=== PATIENT | male | born 1980 | race Caucasian/White ===

== ENCOUNTER 2024-03-15 23:23 | Inpatient (IN) | payer OTHER ==
[2024-03-15] MEDS ORDERED: NALOXONE 0.4 MG/ML 1 ML VIAL IV PRN (23:41)
--- NOTE | 2024-03-15 23:41 | ED ---
General Adult HPI - General Chief complaint: Recheck/Abnormal Lab/Rx Stated complaint: transfer Time Seen by Provider: 03/15/24 23:25 Source: patient, EMS Mode of arrival: EMS - History of Present Illness Initial comments: Dictation was produced using [employer] dictation software. please excuse any grammatical, word or spelling errors. Chief Complaint: 43-year-old male presents to the emergency as transfer from [facility] for ACS History of Present Illness: Patient is a 43-year-old male presents emergency department as a transfer from [facility]. He was found to have a troponin level of 15.13. States that he initially presented to [facility] for chest pain states that it was a sharp pain to her substernal chest associated with diaphoresis at [facility] his given aspirin heparin states that his symptoms resolved. At the bedside he is currently pain-free. He has history of diabetes. States he does have family history. Denies any other comorbidities or risk factors. The ROS documented in this emergency department record has been reviewed and confirmed by me. Those systems with pertinent positive or negative responses have been documented in the HPI. All other systems are other negative and/or noncontributory. - Related Data Allergies Allergy/AdvReac Type Severity Reaction Status Date / Time No Known Allergies Allergy Verified 03/15/24 23:33 Review of Systems ROS Statement: Those systems with pertinent positive or pertinent negative responses have been documented in the HPI. ROS Other: All systems not noted in ROS Statement are negative. Past Medical History Past Medical History: Diabetes Mellitus, Hyperlipidemia Smoking Status: Current every day smoker Past Alcohol Use History: None Reported Past Drug Use History: Marijuana General Exam - General Exam Comments Initial Comments: PHYSICAL EXAM: General Impression: Alert and oriented x3, not in acute distress HEENT: Normocephalic atraumatic, extra-ocular movements intact, pupils equal and reactive to light bilaterally, mucous membranes moist. Cardiovascular: Heart regular rate and rhythm Chest: Able to complete full sentences, no retractions, no tachypnea Abdomen: abdomen soft, non-tender, non-distended, no organomegaly Musculoskeletal: Pulses present and equal in all extremities, no peripheral edema Motor: no focal deficits noted Neurological: CN II-XII grossly intact, no focal motor or sensory deficits noted Skin: Intact with no visualized rashes Psych: Normal affect and mood Course Vital Signs 03/15/24 23:24 Temperature 98.0 F Pulse Rate 79 Respiratory 18 Rate Blood Pressure 132/71 O2 Sat by Pulse 96 Oximetry - Reevaluation(s) Reevaluation #1: 03/15/24 23:35 EKG was performed at 11:29 PM. Code STEMI paged at [address] Tran at 1136 EKG Findings - EKG Comments: EKG Findings:: My EKG interpretation: Ventricular rate 73, sinus rhythm,. 131, QRS 109, QTc 410. No AK prolongation, no QTC prolongation. Inferior ST elevations with reciprocal changes in the high lateral leads. EKG consistent with inferior STEMI Medical Decision Making - Medical Decision Making Was pt. sent in by a medical professional or institution (, PA, [employer] SURFACE HEATER OPERATOR, urgent care, hospital, or jail...) When possible be specific @ -Outside emergency department Did you speak to anyone other than the patient for history (EMS, parent, family, police, friend...)? What history was obtained from this source @ -Spoke with ER transferring physician states that patient was being transferred for NSTEMI with elevated troponin. Did you review nursing and triage notes (agree or disagree)? Why? @ -I reviewed and agree with nursing and triage notes Were old charts reviewed (outside hosp., previous admission, EMS record, old EKG, old radiological studies, urgent care reports/EKG's, jail records)? Report findings @ -Transfer documentations were reviewed Differential Diagnosis (chest pain, altered mental status, abdominal pain women, abdominal pain men, vaginal bleeding, musculoskeletal, weakness, fever, dyspnea, syncope, headache, dizziness, GI bleed, back pain, seizure, CVA, palpatations, mental health)? @ -Differential Chest Pain: Stable Angina, Unstable Angina, STEMI, NSTEMI Aortic Dissection, Pneumothorax, Musculoskeletal, Esophageal Spasm GERD, Cholecystitis, Pancreatitis, Zoster, this is not meant to be an all-inclusive list. EKG interpreted by me (3pts min.). @ -See above X-rays interpreted by me (1pt min.). @ -Portable chest x-ray shows no acute processes CT interpreted by me (1pt min.). @ -None done U/S interpreted by me (1pt. min.). @ -None done What testing was considered but not performed or refused? (CT, X-rays, U/S, labs)? Why? @ -None What meds were considered but not given or refused? Why? @ -None Was smoking cessation discussed for >3mins.? @ -No Were there social determinants of health that impacted care today? How? (Homelessness, low income, unemployed, alcoholism, drug addiction, transportation, low edu. Level, literacy, decrease access to med. care, retirement, rehab)? @ -No Was there de-escalation of care discussed even if they declined (Discuss DNR or withdrawal of care, Hospice)? DNR status @ -No What co-morbidities impacted this encounter? (DM, HTN, Smoking, COPD, CAD, Cancer, CVA, ARF, Chemo, Hep., AIDS, mental health diagnosis, sleep apnea, morbid obesity)? @ -Diabetes and family history of heart attacks Was patient admitted / discharged? Hospital course, mention meds given and route, prescriptions, significant lab abnormalities, going to OR and other pertinent info. @ -43-year-old male presents to the emergency department with elevated troponin and concern for acute coronary syndrome. Spoke with transferring ER doctor from [facility]. Transfer documentations were reviewed. Accordingly to documentation there was signs of ST elevation WA however transferring ER physician did not identify EKG as a ST segment elevation [place]. Transferred here after being given heparin and aspirin. Case discussed with cardiology. Patient will be dispositioned to Product Safety Consultant after code STEMI was paged. Case discussed with hospitalist for admission Did you discuss the management of the patient with other professionals (professionals i.e. , PA, [employer] SURFACE HEATER OPERATOR, lab, RT, psych nurse, health care social worker, sports lawyer, teacher, chief sustainability officer, porter sample case)? Give summary @ -See above Was critical care preformed (if so, how long)? @ -Yes, 33 minutes Undiagnosed new problem with uncertain prognosis? @ -No Drug Therapy requiring intensive monitoring for toxicity (Heparin, Nitro, Insulin, Cardizem)? @ -No Were any procedures done? @ -No Diagnosis/symptom? Acute, or Chronic, or Acute on Chronic? Uncomplicated (without systemic symptoms) or Complicated (systemic symptoms)? @ -STEMI Side effects of treatment? @ -No Exacerbation, Progression, or Severe Exacerbation? @ -No Poses a threat to life or bodily function? How? (Chest pain, [place], [place], pneumonia, PE, COPD, DKA, ARF, appy, cholecystitis, CVA, Diverticulitis, Homicidal, S uicidal, threat to staff... and all critical care pts) @ -yes Disposition Clinical Impression: STEMI (ST elevation myocardial infarction) Disposition: ADMITTED IP TO THIS HOSP Condition: Critical Referrals: None,Stated [Primary Care Provider] - 1-2 days Decision Time: 23:41
[2024-03-15] MEDS: SODIUM CHLORIDE 0.9% 1,000 ML IV SCH (23:51)
[2024-03-15 23:58] LABS: Glucose,Whole Blood 283 mg/dL (70-110)
[2024-03-16] MEDS: fentaNYL (PF) 50 MCG/ML 2 ML AMP IVP ONE (00:16)
[2024-03-16] MEDS: LIDOCAINE 1% INJ 10MG/ML (20 ML MDV) SQ ONE (00:16)
[2024-03-16] MEDS: VERAPAMIL SYRINGE (5 MG/10 ML) INTRAARTER ONE (00:18)
[2024-03-16] MEDS: IV FLUID CONTINUATION 1,000 ML IV ONE (00:21)
[2024-03-16] MEDS: HEPARIN SODIUM 1,000 UN/ML (10ML VL) IVP ONE ×3 (00:23→00:49)
[2024-03-16] MEDS: PRASUGREL 10 MG TAB PO ONE (00:29)
[2024-03-16] MEDS: IOPAMIDOL-370 100ML BTL INJ ONE (01:01)
[2024-03-16] MEDS: HEPARIN SODIUM,PORCINE (1 ML) 2,500 UNIT in SODIUM CHLORIDE 0.9% 250 ML IRRIGATION ONE (01:03)
[2024-03-16] MEDS: HEPARIN SODIUM,PORCINE 10,000 UNIT in SODIUM CHLORIDE 0.9% 1,000 ML IRRIGATION ONE (01:03)
--- NOTE | 2024-03-16 01:21 | P.CRDCN ---
History of Present Illness Consult date: 03/16/24 History of present illness: History of Present Illness: The patient is a 43-year-old male with a history of diabetes, hyperlipidemia and chronic tobacco use who was transferred from [facility] for evaluation of chest discomfort. He has no prior documented history of CAD but according to him he woke up at 1:00 in the morning yesterday with symptoms of discomfort that he thought was related to reflux and heartburn. His discomfort was on and off throughout the day then subsequently was worse went to [facility] and over there he had a troponin of 15.1. He was subsequently to [facility] and his EKG showed ST segment elevation in lead to 3 and aVF with QS pattern. Patient had associated nausea and vomiting but no significant dyspnea, dizziness or palpitations. He denies any similar symptoms in the past and according to him he is relatively active without any symptoms. He has been trying to decrease the amount of smoking. Medications: Atorvastatin, ezetimibe, insulin, metformin, Januvia, Effexor Review of Systems: Respiratory: No history of asthma, bronchitis or recent cough. GI: He had nausea and vomiting today. No history of peptic ulcer disease. No recent GI bleed. : He no recent history of bleeding or dysuria Nervous System: No stroke or seizure. Physical Examination: 43-year-old male, alert oriented, pain-free at the time of my evaluation,Blood pressure 98/70, Heart rate 70 Head: Normocephalic. Eyes: Sclerae nonicteric. Neck: Good carotid upstroke, no bruit, no jugular venous distention. Lungs: Clear to auscultation. Heart: Regular rate and rhythm, S1-S2, no S3, no rub. No murmur. Abdomen: Soft nontender, positive bowel sounds no organomegaly. Extremities: No edema, intact distal pulses. Labs: From a light show hemoglobin of 15.6, potassium 4.1, BUN 14, creatinine 0.6, troponin 15.1. EKG shows sinus mechanism rate of [address] elevation in lead to 3 and aVF with mild ST depression in the anterior precordial leads with QS pattern inferiorly Impression: 1. Acute inferior wall myocardial infarction, symptoms started about 24 hours ago but patient had recurrent discomfort throughout the day 2. Chronic tobacco use 3. History of hyperlipidemia 4. History of diabetes Plan: 1. Proceed with coronary angiography, the procedure as well as the risks and the complications were discussed with the patient who was in agreement and understanding 2. Smoking cessation, patient will be referred to [place] quit line 3. Continue aggressive coronary risk modification 4. Obtain an echocardiogram with Doppler 5. Depending on his progress further recommendations will be made, thank you for this consult we will follow with you. Past Medical History Past Medical History: Diabetes Mellitus, Hyperlipidemia Smoking Status: Current every day smoker Past Alcohol Use History: None Reported Past Drug Use History: Marijuana Medications and Allergies Allergies Allergy/AdvReac Type Severity Reaction Status Date / Time No Known Allergies Allergy Verified 03/15/24 23:33 Physical Exam Vitals: Vital Signs Temp Pulse Resp BP Pulse Ox 03/15/24 23:57 93 18 120/68 98 03/15/24 23:53 82 16 104/67 98 03/15/24 23:45 86 16 116/78 98 03/15/24 23:35 82 82 H 130/75 98 03/15/24 23:24 98.0 F 79 18 132/71 96 Intake and Output 03/15/24 03/15/24 03/16/24 14:59 22:59 06:59 Intake Total 300 Balance 300 Intake: IV 300 Other: Weight 99.79 kg Results Current Medications Generic Name Dose Route Start Last Admin Trade Name Freq PRN Reason Stop Dose Admin Sodium Chloride 1,000 mls @ 20 mls/hr 03/15/24 23:45 03/15/24 23:51 Saline 0.9% IV 20 mls/hr .Q24H RAMIRO Administration Naloxone HCl 0.2 mg 03/15/24 23:41 Naloxone 0.4 Mg/Ml 1 Ml Vial IV Q2M PRN Opioid Reversal Intake and Output 03/15/24 03/15/24 03/16/24 14:59 22:59 06:59 Intake Total 300 Balance 300 Intake: IV 300 Other: Weight 99.79 kg Patient Weight 03/16/24 06:59 Weight 99.79 kg
[2024-03-16 01:30] LABS: Glucose,Whole Blood 262 mg/dL (70-110)
[2024-03-16] MEDS ORDERED: MAG HYDROX/AL HYDROX/SIMETH 30 ML CUP PO PRN (01:30)
[2024-03-16] MEDS ORDERED: NITROGLYCERIN SL TABS 0.4 MG TAB SUBLINGUAL PRN (01:30)
[2024-03-16] MEDS ORDERED: ZOLPIDEM 5 MG TAB PO PRN (01:30)
[2024-03-16] MEDS ORDERED: RX INFO: IV CONTRAST WAS GIVEN 1 EACH MISC MISCELLANE PRN (01:30)
[2024-03-16] MEDS ORDERED: ATROPINE SULFATE 0.1 MG/ML 10ML SYRINGE IV PRN (01:30)
--- NOTE | 2024-03-16 01:30 | P.CARDCATH ---
Date of Procedure: 03/16/24 Description of Procedure: Cardiac Catheterization: The patient is a 43-year-old male who was transferred from [facility] with symptoms of chest discomfort and elevation of his troponin on presentation his EKG showed ST segment elevation inferiorly with QS pattern. Recommendations were made regarding cardiac catheterization, the risks and the complications were discussed with the patient who is in full understanding and agreement. Procedure Description: Patient was brought to labeling associate in fasting semi-sedated state after receiving Fentanyl and Benadryl achieiving moderate conscious sedated state. Using Xylocaine Anesthesia and modified Seldinger technique, a 6-Nigerian sheath was introduced in the right radial artery . Subsequently, selective coronary angiography was performed using a 5-Nigerian 3.5 bend left Yarelis catheter and 6 Nigerian FR 4 guiding catheter. Multiple views of the coronary artery including hemiaxial views were obtained. The 5 Nigerian pigtail catheter was used to cross the aortic valve and LVEDP was calculated. PCI: Using the 6 Nigerian FR 4 guiding catheter and after cannulating the right coronary ostium a 0.014 BMW J-wire with the help of a super cross microcatheter the total occlusion was crossed and the wire was positioned in the distal RCA, after removing the super cross a 2.5 x 12 mm trek balloon was advanced and 2 inflations were done, subsequently the balloon was removed and a 6 Nigerian guide liner was introduced and a [employer] [place] eye IVUS catheter was introduced and images were obtained and revealed diffuse disease throughout the artery with evidence of mildly calcified lesion at the site of the occlusion. The distal vessel measured 3.0 to 3.25 mm in diameter. After removing the IVUS catheter a 3.0 x 38 mm Xience [place] stent was deployed at 16 ector. Repeat IVUS imaging was performed and revealed under deployment of the stent in the midsegment. A 4.0 x 20 mm NC trek balloon was advanced and multiple inflations at 10 ector were done. After the last inflation the wire was removed and images were obtained and revealed stable successful stenting. After removing the catheter images of the left system were performed. Following that, catheter and sheath were removed. Hemostasis was obtained with deployment of vascular band . There was no immediate complication. Patient was returned to room in stable condition. Of note, the patient received a total of 7500 units of intravenous heparin as well as intra-arterial verapamil. He received an oral loading dose of Effient. His ACT was followed. He had no significant EKG changes and he was pain-free at the end of the procedure. Findings: Fluoroscopy: Calcification of the proximal LAD was noted Left main: This is a large size vessel, bifurcating into LAD and left circumflex, left main has no obstructive disease. LAD: This is a large size vessel, reaching to the apex giving rise to a small diagonal branch proximally. The LAD has diffuse disease in the midsegment with a area of stenosis up to 70 to 80% but with small caliber of the vessel. This is a nondominant vessel giving rise to 4 obtuse marginal branch the first and the last 1 are the largest in caliber. The first obtuse marginal branch has a 60 to 70% stenosis the vessel is diffusely disease the rest of the vessel has no high-grade stenosis Left circumflex: This vessel is totally occluded in the midsegment with no significant antegrade flow. The proximal segment has intimal disease of 20 to 30% RCA: Not performed Left Ventriculogram: Not performed Hemodynamics: There was no gradient across aortic valve, LVEDP was 20-22 mmHg Conclusion: 1. Calcified LAD 2. Acutely occluded mid RCA 3. Significant disease in the mid LAD in a long segment with diffuse intimal disease and small caliber vessel 4. Moderate to severe disease involving the first OM 5. Successful stenting of the mid RCA with reduction of stenosis from 100% to less than 5% with IVUS imaging and TACHO-3 flow Recommendations: The patient will continue on aspirin and Effient without any interruption for 1 year in addition to aggressive coronary risks modifications, maintaining LDL below 70 mg/dL. The importance smoking cessation was discussed with the patient and he will be given information about [place] quit line. The findings and the recommendations were discussed with the patient and the family and they were in full understanding and agreement. Duration of sedation is 46 minutes.
--- NOTE | 2024-03-16 01:34 | XR ---
EXAM: XR Chest, 1 View CLINICAL HISTORY: stemi TECHNIQUE: Frontal view of the chest. COMPARISON: No relevant prior studies available. FINDINGS: Lungs: Pulmonary vessels are top normal in caliber without CHF. Pleural space: No pleural effusion. No pneumothorax. Heart: Unremarkable. No cardiomegaly. Mediastinum: Unremarkable. Normal mediastinal contour. Bones/joints: Unremarkable. No acute fracture. IMPRESSION: Pulmonary vessels top normal in caliber without gross CHF.
[2024-03-16] MEDS: SODIUM CHLORIDE 0.9% 1,000 ML in EMPTY BAG 1 BAG IV SCH (01:38)
[2024-03-16] MEDS ORDERED: DEXTROSE 50% SYRINGE 50 ML IVP PRN ×2 (02:37)
[2024-03-16] MEDS: ONDANSETRON 4 MG/2 ML VIAL IVP PRN (02:49)
--- NOTE | 2024-03-16 04:55 | P.HPIM ---
History of Present Illness H&P Date: 03/16/24 Chief Complaint: STEMI 43 year old male with DM patient coming in as a transfer for NSTEMI , however upon arrival he was found to have STEMI , chemical processing laborer activated and patient is about to go to the chemical processing laborer patient started having sudden chest pain about 1 am (24 hours ago ) he initially thought it was indigestion , however, started experiencing pain across his chest with sweating and feeling hot /cold and vomiting few times, his insisted that he goes for evaluation . his symptoms started improving after he was started on medication at the other facility . patient was diagnosed with nsTEMI and was sent to our facility for cardio evaluation currently he denies any active chest pain admits to smoking cigarettes , denies any drugs or alcohol \ patient denies any recent travel or history of blood clots, denies any cardiac history or cardiac workup in the past review of systems Pertinent positives as noted in HPI. All other systems were reviewed and are negative on exam Constitutional: No acute distress, conversant, pleasant Eyes: Anicteric sclerae, moist conjunctiva, Pupils equal round reactive to light ENMT: NC/AT Oropharynx clear, no erythema, or exudates Neck: Supple, no masses, or JVD No carotid bruits No thyromegaly Lungs: Clear to auscultation Clear to percussion Normal respiratory effort, no accessory muscle use Cardiovascular: Heart regular in rate and rhythm, No murmurs, gallops, or rubs No peripheral edema Abdominal: Soft Nontender, no guarding, rebound or rigidity Abdomen moving with respiration Normoactive bowel sounds Extremities: No digital cyanosis No clubbing Pedal pulses intact and symmetrical Radial pulses intact and symmetrical No calf tenderness Psychiatric: Alert and oriented to person, place and time Appropriate affect fair judgement Neuro Muscles Strength 5/5 in all 4 extremities Sensation to light touch grossly present throughout Cranial nerves II-XII grossly intact Past Medical History Past Medical History: Diabetes Mellitus, Hyperlipidemia History of Any Multi-Drug Resistant Organisms: None Reported Past Surgical History: No Surgical Hx Reported Past Anesthesia/Blood Transfusion Reactions: No Reported Reaction Past Psychological History: No Psychological Hx Reported Smoking Status: Current every day smoker Past Alcohol Use History: None Reported Past Drug Use History: Marijuana Medications and Allergies Allergies Allergy/AdvReac Type Severity Reaction Status Date / Time No Known Allergies Allergy Verified 03/15/24 23:33 Physical Exam Vitals: Vital Signs Temp Pulse Resp BP Pulse Ox 03/16/24 03:00 71 12 111/64 95 03/16/24 02:00 98.5 F 73 26 H 111/72 96 03/15/24 23:57 93 18 120/68 98 03/15/24 23:53 82 16 104/67 98 03/15/24 23:45 86 16 116/78 98 03/15/24 23:35 82 82 H 130/75 98 03/15/24 23:24 98.0 F 79 18 132/71 96 Intake and Output 03/15/24 03/15/24 03/16/24 14:59 22:59 06:59 Intake Total 500 Balance 500 Intake: IV 300 Intake, IV Titration 200 Amount Sodium Chloride 0.9% 1, 200 000 ml In Empty Bag 1 bag @ 1 ML/KG/HR 99.79 mls/ hr IV .Q10H2M RAMIRO Rx#: [id number] Other: Weight 99.79 kg Results Labs: Abnormal Lab Results - Last 24 Hours (Table) 03/15/24 03/16/24 Range/Units 23:57 01:28 POC Glucose (mg/dL) 283 H 262 H (70-110) mg/dL Thrombosis Risk Factor Assmnt - Choose All That Apply Any of the Below Risk Factors Present?: Yes Each Factor Represents 1 point: Age 41-60 years Other Risk Factors: No Thrombosis Risk Factor Assessment Total Risk Factor Score: 1 Thrombosis Risk Factor Assessment Level: Low Risk Assessment and Plan Assessment: 43 year old male with DM coming in for chest pain evaluation forund to have STEMI and was taken to the chemical processing laborer STEMI EKG showing STEMI inferior leads cardiology evaluation heparin gtt per ACS protocol ASA 325 , lipitor currently denies any chest pain patient waiting to be taken to chemical processing laborer denies any cardiac history trop elevated 15 DM insulin sliding scale blood work showed wbc 5.16 hgb 15 unremarkable Na 132 , K 4.1 , BUN 14 , Cr 0.6 unremarkable full code DVT PPX on heparin gtt for ACS
[2024-03-16 06:27] LABS: Glucose,Whole Blood 318 mg/dL (70-110)
[2024-03-16 07:14] LABS: HCT 42.9 % (39.0-53.0); HGB 13.8 gm/dL (13.0-17.5); MCH 29.5 pg (25.0-35.0); MCHC 32.2 g/dL (31.0-37.0); MCV 91.7 fL (80.0-100.0); Mean Platelet Volume 7.6; Platelet Count 197 k/uL (150-450); RBC 4.68 m/uL (4.30-5.90); RDW 12.3 % (11.5-15.5); WBC 14.1 k/uL (3.8-10.6)
[2024-03-16] MEDS: INSULIN ASPART (NovoLOG) 100 UNIT/ML VIAL SQ SCH (07:20)
[2024-03-16 07:35] LABS: African American GFR (CKD) >90 (>60 ml/min/1.73 sqM); Anion Gap 10 mmol/L; Blood Urea Nitrogen 16 mg/dL (9-20); Calcium 8.6 mg/dL (8.4-10.2); Carbon Dioxide 24 mmol/L (22-30); Chloride 103 mmol/L (98-107); Glucose 287 mg/dL (74-99); Magnesium 1.8 mg/dL (1.6-2.3); Non-African American GFR(CKD) >90 (>60 ml/min/1.73 sqM); Potassium 4.2 mmol/L (3.5-5.1); Sodium 137 mmol/L (137-145)
[2024-03-16] MEDS: ASPIRIN 81 MG PO SCH (10:13)
[2024-03-16] MEDS: METOPROLOL TARTRATE 25 MG TAB PO SCH (10:13)
[2024-03-16 10:49] LABS: Chol/HDL Ratio 8.12 Ratio; LDL Cholesterol,Calculated 128.8 mg/dL (0.0-131.0)
[2024-03-16 11:19] LABS: Glucose,Whole Blood 246 mg/dL (70-110)
--- NOTE | 2024-03-16 13:32 | CA ---
Transthoracic Echo Report Name: Nakul Brewer Age: 43 Gender: M : 1980 Exam Date: 03/16/2024 08:27 Exam Location: [facility] Ht (in): 71 Wt (lb): 220 Ordering Physician: Jeannie Tran MD ([id number]) Attending/Referring Phys: [employer] Attacher Maddie Kumar RDCS Procedure CPT: Indications: NH Cardiac Hx: Technical Quality: Fair Contrast 1: Definity Total Dose (mL): 1 Contrast 2: Total Dose (mL): MEASUREMENTS (Male / Female) Normal Values 2D ECHO LV Diastolic Diameter PLAX 4.6 cm 4.2 - 5.9 / 3.9 - 5.3 cm LV Systolic Diameter PLAX 3.5 cm IVS Diastolic Thickness 0.9 cm 0.6 - 1.0 / 0.6 - 0.9 cm LVPW Diastolic Thickness 1.0 cm 0.6 - 1.0 / 0.6 - 0.9 cm LV Relative Wall Thickness 0.4 LVOT Diameter 2.5 cm Aortic Root Diameter 3.0 cm LV Diastolic Volume MOD BP 129.2 cm??? 67 - 155 / 56 - 104 cm??? LV Systolic Volume MOD BP 69.8 cm??? 22 - 58 / 19 - 49 cm??? LV Ejection Fraction MOD BP 46.0 % >= 55 % LV Cardiac Index MOD BP 2021.4 cm???/min???m??? LV Diastolic Volume MOD 4C 121.3 cm??? LV Systolic Volume MOD 4C 68.6 cm??? LV Ejection Fraction MOD 4C 43.4 % LV Cardiac Index MOD 4C 1794.7 cm???/min???m??? LV Diastolic Length 4C 8.3 cm LV Systolic Length 4C 7.2 cm LV Diastolic Volume MOD 2C 147.9 cm??? LV Systolic Volume MOD 2C 68.8 cm??? LV Ejection Fraction MOD 2C 53.5 % LV Cardiac Index MOD 2C 2692.7 cm???/min???m??? LV Diastolic Length 2C 8.9 cm LV Systolic Length 2C 7.8 cm Ascending Aorta Diameter 2.9 cm DOPPLER AV Peak Velocity 127.4 cm/s AV Peak Gradient 6.5 mmHg AV Mean Velocity 98.9 cm/s AV Mean Gradient 4.1 mmHg AV Velocity Time Integral 22.4 cm LVOT Peak Velocity 125.6 cm/s LVOT Peak Gradient 6.3 mmHg LVOT Velocity Time Integral 23.2 cm LVOT Stroke Volume 117.2 cm??? LVOT Stroke Volume Index 53.4 ml/m??? LVOT Cardiac Index 3991.8 cm???/min???m??? AV Area Cont Eq vti 5.2 cm??? AV Area Cont Eq pk 5.0 cm??? Mitral E Point Velocity 56.0 cm/s Mitral A Point Velocity 41.2 cm/s Mitral E to A Ratio 1.4 MV Deceleration Time 158.9 ms MV E' Velocity 7.2 cm/s Mitral E to MV E' Ratio 7.8 TR Peak Velocity 244.8 cm/s TR Peak Gradient 24.0 mmHg Right Atrial Pressure 15.0 mmHg Pulmonary Artery Systolic Pressu 39.0 mmHg Right Ventricular Systolic Press 39.0 mmHg PV Peak Velocity 80.9 cm/s PV Peak Gradient 2.6 mmHg FINDINGS Left Ventricle Left ventricular ejection fraction is estimated at 45-50 %. Mildly increased left ventricular systolic volume. Mildly decreased left ventricular ejection fraction. Left ventricular wall thickness normal. Right Ventricle Moderate right ventricular dilatation with normal function. Mild pulmonary hypertension. Right Atrium Right atrial dilatation. Left Atrium Normal left atrial size. Mitral Valve Structurally normal mitral valve. No evidence for mitral valve prolapse. No mitral stenosis. Mild mitral regurgitation. Aortic Valve Trileaflet aortic valve. No aortic valve stenosis or regurgitation. Tricuspid Valve Structurally normal tricuspid valve. No tricuspid stenosis. [id number] tricuspid regurgitation. Pulmonic Valve Structurally normal pulmonic valve. No pulmonic stenosis. Trace pulmonic regurgitation. Pericardium No pericardial effusion. Aorta Aortic root and proximal ascending aorta not well visualized. CONCLUSIONS LVEF is estimated at 45- mildly dilated RV 50 %. Mild mid inferior wall hypokinesia Mildly dilated RV with RVSP of 38 mmHg Mild MR Moderate TR Previewed by: Dr Cameron Golden (Electronically Signed) Final Date: 16 March 2024 13:31
[2024-03-16 13:37] VITALS: BMI 30.7
[2024-03-16] MEDS ORDERED: Magnesium Replacement Protocol 1 EACH MISC MISCELLANE PRN (14:41)
[2024-03-16] MEDS: MAGNESIUM SULFATE-D5W PMX 1 GM in DEXTROSE/WATER 1 100ML.BAG IVPB ONE (14:45)
--- NOTE | 2024-03-16 15:41 | P.PN ---
Subjective History of Present Illness: The patient is a 43-year-old male with a history of diabetes, hyperlipidemia and chronic tobacco use who was transferred from [facility] for evaluation of chest discomfort. He has no prior documented history of CAD but according to him he woke up at 1:00 in the morning yesterday with symptoms of discomfort that he thought was related to reflux and heartburn. His discomfort was on and off throughout the day then subsequently was worse went to [facility] and over there he had a troponin of 15.1. He was subsequently to [facility] and his EKG showed ST segment elevation in lead to 3 and aVF with QS pattern. Patient had associated nausea and vomiting but no significant dyspnea, dizziness or palpitations. He denies any similar symptoms in the past and according to him he is relatively active without any symptoms. He has been trying to decrease the amount of smoking. Medications: Atorvastatin, ezetimibe, insulin, metformin, Januvia, Effexor 03/16 Patient seen and examined. Patient underwent left heart catheterization showing 100% RCA occlusion as well as mid LAD 70-80% stenosis. He underwent successful stenting of the RCA. Denies any further chest pain or pressure. Blood pressure is borderline in the 90s to 100s systolic. Echocardiogram shows EF 45-50% without significant valvular disease. Physical Examination: 43-year-old male, alert oriented, pain-free at the time of my evaluation,Blood pressure 98/70, Heart rate 70 Head: Normocephalic. Eyes: Sclerae nonicteric. Neck: Good carotid upstroke, no bruit, no jugular venous distention. Lungs: Clear to auscultation. Heart: Regular rate and rhythm, S1-S2, no S3, no rub. No murmur. Abdomen: Soft nontender, positive bowel sounds no organomegaly. Extremities: No edema, intact distal pulses. Labs: From a light show hemoglobin of 15.6, potassium 4.1, BUN 14, creatinine 0.6, troponin 15.1. EKG shows sinus mechanism rate of [address] elevation in lead to 3 and aVF with mild ST depression in the anterior precordial leads with QS pattern inferiorly Impression: 1. Acute inferior wall myocardial infarction, symptoms started about 24 hours ago but patient had recurrent discomfort throughout the day 2. Chronic tobacco use 3. History of hyperlipidemia 4. History of diabetes 5. CAD s/p PCI RCA, residual borderline lesion in mid LAD 6. Mild ICMP EF 45-50% Plan: tobacco cessation Echo showing mild decrease in EF 45-50% Continue with aspirin and Effient Lipitor Beta andriy as tolerated. Borderline blood pressures. Mid LAD lesion appears borderline and not having significant angina. Consider outpatient evaluation for possible staged PCI versus stress testing. Okay for transfer from ICU. Possible discharge home in next 24 hours if remains stable. Objective - Vital Signs Vital signs: Vital Signs Temp 98.6 F 03/16/24 15:20 Pulse 80 03/16/24 15:20 Resp 18 03/16/24 15:20 BP 95/54 03/16/24 15:20 Pulse Ox 97 03/16/24 15:20 FiO2 Intake & Output 03/15/24 03/16/24 03/16/24 18:59 06:59 18:59 Intake Total 1300 950 Output Total 600 0 Balance 700 950 Weight 99.79 kg 99.79 kg Intake: IV 300 Intake, IV Titration 500 500 Amount Sodium Chloride 0.9% 1, 500 500 000 ml In Empty Bag 1 bag @ 1 ML/KG/HR 99.79 mls/ hr IV .Q10H2M RAMIRO Rx#: [id number] Oral 500 450 Output: Urine 600 0 Other: Voiding Method Toilet Urinal # Voids 1 - Labs CBC & Chem 7: 03/16/24 05:20 03/16/24 05:20 Labs: Abnormal Lab Results - Last 24 Hours (Table) 03/15/24 03/16/24 03/16/24 Range/Units 23:57 01:28 05:20 WBC (3.8-10.6) k/uL Creatinine (0.66-1.25) mg/dL Glucose (74-99) mg/dL POC Glucose (mg/dL) 283 H 262 H (70-110) mg/dL Hemoglobin A1c 11.7 H (<=6.0) % Triglycerides (0.00-149.00) mg/dL Cholesterol (0.00-200.00) mg/dL VLDL Cholesterol, Calc (5.00-40.00) mg/dL HDL Cholesterol (40.00-60.00) mg/dL 03/16/24 03/16/24 03/16/24 Range/Units 05:20 05:20 05:20 WBC 14.1 H (3.8-10.6) k/uL Creatinine 0.63 L (0.66-1.25) mg/dL Glucose 287 H (74-99) mg/dL POC Glucose (mg/dL) (70-110) mg/dL Hemoglobin A1c (<=6.0) % Triglycerides 268.00 H (0.00-149.00) mg/dL Cholesterol 208.00 H (0.00-200.00) mg/dL VLDL Cholesterol, Calc 53.60 H (5.00-40.00) mg/dL HDL Cholesterol 25.60 L (40.00-60.00) mg/dL 03/16/24 03/16/24 Range/Units 06:26 11:17 WBC (3.8-10.6) k/uL Creatinine (0.66-1.25) mg/dL Glucose (74-99) mg/dL POC Glucose (mg/dL) 318 H 246 H (70-110) mg/dL Hemoglobin A1c (<=6.0) % Triglycerides (0.00-149.00) mg/dL Cholesterol (0.00-200.00) mg/dL VLDL Cholesterol, Calc (5.00-40.00) mg/dL HDL Cholesterol (40.00-60.00) mg/dL
[2024-03-16 15:48] LABS: Glucose,Whole Blood 283 mg/dL (70-110)
[2024-03-16 20:19] LABS: Glucose,Whole Blood 271 mg/dL (70-110)
[2024-03-16] MEDS: ATORVASTATIN 80 MG TAB PO SCH (20:32)
[2024-03-17 08:46] LABS: Basophils # (A) 0.1 k/uL (0-0.2); Basophils % (A) 1 %; Eosinophils # (A) 0.1 k/uL (0-0.7); Eosinophils % (A) 1 %; HCT 45.8 % (39.0-53.0); HGB 14.8 gm/dL (13.0-17.5); Lymphocytes # (A) 3.7 k/uL (1.0-4.8); Lymphocytes % (A) 30 %; MCH 29.9 pg (25.0-35.0); MCHC 32.3 g/dL (31.0-37.0); MCV 92.6 fL (80.0-100.0); Mean Platelet Volume 7.8; Monocytes # (A) 0.8 k/uL (0-1.0); Monocytes % (A) 7 %; Neutrophils # (A) 7.6 k/uL (1.3-7.7); Neutrophils % (A) 61 %; Platelet Count 204 k/uL (150-450); RBC 4.94 m/uL (4.30-5.90); RDW 12.2 % (11.5-15.5); WBC 12.5 k/uL (3.8-10.6)
[2024-03-17 08:47] LABS: ALT 63 U/L (4-49); AST 79 U/L (17-59); African American GFR (CKD) >90 (>60 ml/min/1.73 sqM); Albumin 4.2 g/dL (3.5-5.0); Alkaline Phosphatase 88 U/L (38-126); Anion Gap 6 mmol/L; Blood Urea Nitrogen 18 mg/dL (9-20); Calcium 9.3 mg/dL (8.4-10.2); Carbon Dioxide 30 mmol/L (22-30); Chloride 101 mmol/L (98-107); Glucose 198 mg/dL (74-99); Magnesium 2.1 mg/dL (1.6-2.3); Non-African American GFR(CKD) >90 (>60 ml/min/1.73 sqM); Potassium 4.2 mmol/L (3.5-5.1); Sodium 137 mmol/L (137-145); Total Bilirubin 0.5 mg/dL (0.2-1.3); Total Protein 6.5 g/dL (6.3-8.2)
[2024-03-17] MEDS: VENLAFAXINE HCL ER 75 MG CAP PO SCH (09:01)
[2024-03-17 10:05] VITALS: RESP 16; TEMP 98.3
[2024-03-17 10:57] LABS: Glucose,Whole Blood 285 mg/dL (70-110)
--- NOTE | 2024-03-17 11:38 | P.DS ---
Providers Date of admission: 03/15/24 23:41 Expected date of discharge: 03/17/24 Attending physician: Obdulia Leo MD Consults: 03/15/24 23:41 Consult Physician Stat Consulting Provider: Jeannie Tran Consult Reason/Comments: stemi Do you want consulting provider notified?: Yes 03/16/24 01:30 Consult Physician Routine Consulting Provider: [facility] Consult Reason/Comments: Post Interventional Patient Do you want consulting provider notified?: Already Contacted Primary care physician: Stated None Hospital Course: Discharge Diagnosis: Acute inferior wall STEMI Mild HFrEF, EF 45 to 50% Mild pulmonary hypertension Uncontrolled type 2 diabetes Leukocytosis, reactive Dyslipidemia Nicotine dependence Hospital Course: 43 year old M with PMH of HLD, DM, smoker presents to the ED as a transfer from [facility] for acute inferior wall STEMI. Patient was taken directly to [facility]. Had mid RCA stent placed, also noted to have moderate to severe disease involving the first OM, significant disease in the mid LAD. May need outpatient evaluation for possible staged PCI versus stress testing. Patient denies any further chest pain at the time of discharge. Started on metoprolol and Farxiga, dual antiplatelet therapy and statin. Outpatient follow-up with cardiology and PCP. Patient seen and examined at bedside. Vital signs reviewed and stable. General: Nontoxic, no distress, appears at stated age Derm: Warm, dry Head: Atraumatic, normocephalic, symmetric Eyes: EOMI, no lid lag, anicteric sclera Mouth: No lip lesion, mucus membranes moist Cardiovascular: S1S2 reg, no murmur Lungs: CTA bilateral, no rhonchi, no rales, no accessory muscle use Abdominal: Soft, nontender to palpation, no guarding, no appreciable organomega ly Ext: No gross muscle atrophy, no edema, no contractures Neuro: CN II-XI grossly intact, no focal neuro deficits Psych: Alert, oriented, appropriate affect A total of 36 minutes of time were spent preparing this complex discharge summary. Patient was discharged on 03/17/2024 at 1132. Patient Condition at Discharge: Stable Plan - Discharge Summary New Discharge Prescriptions: New Prasugrel [Effient] 10 mg PO DAILY #90 tab Aspirin 81 mg PO DAILY #90 tab Dapagliflozin Propanediol [Farxiga] 10 mg PO DAILY #120 tablet Atorvastatin [Lipitor] 80 mg PO HS #90 tab Metoprolol Tartrate [Lopressor] 25 mg PO BID #120 tab Continue Insulin Glargine,Hum.rec.anlog [Lantus Solostar Pen] 35 units SQ DIRECTED metFORMIN HCL 1,000 mg PO DIRECTED sitaGLIPtin [Januvia] 100 mg PO DIRECTED Venlafaxine HCl ER [Effexor XR] 75 mg PO DIRECTED Discontinued Atorvastatin [Lipitor] 80 mg PO DIRECTED Discharge Medication List Insulin Glargine,Hum.rec.anlog [Lantus Solostar Pen] 35 units SQ DIRECTED 03/16/24 [History] Venlafaxine HCl ER [Effexor XR] 75 mg PO DIRECTED 03/16/24 [History] metFORMIN HCL 1,000 mg PO DIRECTED 03/16/24 [History] sitaGLIPtin [Januvia] 100 mg PO DIRECTED 03/16/24 [History] Aspirin 81 mg PO DAILY #90 tab 03/17/24 [Rx] Atorvastatin [Lipitor] 80 mg PO HS #90 tab 03/17/24 [Rx] Dapagliflozin Propanediol [Farxiga] 10 mg PO DAILY #120 tablet 03/17/24 [Rx] Metoprolol Tartrate [Lopressor] 25 mg PO BID #120 tab 03/17/24 [Rx] Prasugrel [Effient] 10 mg PO DAILY #90 tab 03/17/24 [Rx] Follow up Appointment(s)/Referral(s): Octaviano Calloway MD [STAFF PHYSICIAN] - 1 Week [facility] [NON-STAFF] - 1 Week Patient Instructions/Handouts: Heart Attack (DC), Heart Healthy Diet (DC) Activity/Diet/Wound Care/Special Instructions: 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 Discharge Disposition: HOME SELF-CARE
[2024-03-17 12:21] VITALS: BP 104/71; PULSE 74
[2024-03-17] MEDS: PRASUGREL 10 MG TAB PO SCH (12:29)
--- NOTE | 2024-03-17 13:18 | P.PN ---
Subjective HISTORY OF PRESENT ILLNESS: The patient is a 43-year-old male with a history of diabetes, hyperlipidemia and chronic tobacco use who was transferred from [facility] for evaluation of chest discomfort. He has no prior documented history of CAD but according to him he woke up at 1:00 in the morning yesterday with symptoms of discomfort that he thought was related to reflux and heartburn. His discomfort was on and off throughout the day then subsequently was worse went to [facility] and over there he had a troponin of 15.1. He was subsequently to [facility] and his EKG showed ST segment elevation in lead to 3 and aVF with QS pattern. Patient had associated nausea and vomiting but no significant dyspnea, dizziness or palpitations. He denies any similar symptoms in the past and according to him he is relatively active without any symptoms. He has been trying to decrease the amount of smoking. Medications: Atorvastatin, ezetimibe, insulin, metformin, Januvia, Effexor 03/16 Patient seen and examined. Patient underwent left heart catheterization showing 100% RCA occlusion as well as mid LAD 70-80% stenosis. He underwent successful stenting of the RCA. Denies any further chest pain or pressure. Blood pressure is borderline in the 90s to 100s systolic. Echocardiogram shows EF 45-50% without significant valvular disease. 03/17/2024 Patient seen and examined this morning at the bedside. Patient currently denies chest pain or pressure. He denies shortness of breath. Vital signs are stable. PHYSICAL EXAM: VITAL SIGNS: Reviewed. GENERAL: Well-developed in no acute distress. NECK: Supple. No JVD or thyromegaly LUNGS: Respirations even and unlabored. Lungs essentially clear to auscultation bilaterally. HEART: Regular rate and rhythm. S1 and S2 heard. EXTREMITIES: Normal range of motion. No clubbing or cyanosis. Peripheral pulses intact. No lower extremity edema ASSESSMENT: 1. Acute inferior wall myocardial infarction, s/p cardiac catheterization with stenting of the RCA 2. Chronic tobacco use 3. History of hyperlipidemia 4. History of diabetes 5. CAD s/p PCI RCA, residual borderline lesion in mid LAD 6. Mild ICMP EF 45-50% PLAN: Continue dual antiplatelet therapy with aspirin and Effient for 12 months Continue high intensity statin. LDL goal less than 70 Continue additional cardiac medications Smoking cessation encouraged. Patient to be referred to [place] quit line upon discharge Increase activity as tolerated Farxiga added per primary medicine Patient is stable for discharge home today from a cardiac standpoint Nurse practitioner note has been reviewed by physician. Signing provider agrees with the documented findings, assessment, and plan of care documented by [employer] BURNER as a scribe. Objective - Vital Signs Vital signs: Vital Signs Temp 98.5 F 03/17/24 04:00 Pulse 69 03/17/24 04:00 Resp 12 03/17/24 04:00 BP 101/69 03/17/24 04:00 Pulse Ox 97 03/17/24 04:00 FiO2 Intake & Output 03/16/24 03/17/24 03/17/24 18:59 06:59 18:59 Intake Total 950 Output Total 0 Balance 950 Weight 99.79 kg 100.6 kg Intake: Intake, IV Titration 500 Amount Sodium Chloride 0.9% 1, 500 000 ml In Empty Bag 1 bag @ 1 ML/KG/HR 99.79 mls/ hr IV .Q10H2M RAMIRO Rx#: [id number] Oral 450 Output: Urine 0 Other: Voiding Method Toilet Toilet Urinal Urinal # Voids 1 2 # Bowel Movements 1 - Labs CBC & Chem 7: 03/17/24 05:33 03/17/24 05:33 Labs: Abnormal Lab Results - Last 24 Hours (Table) 03/16/24 03/16/24 03/16/24 Range/Units 05:20 05:20 11:17 WBC (3.8-10.6) k/uL Glucose (74-99) mg/dL POC Glucose (mg/dL) 246 H (70-110) mg/dL Hemoglobin A1c 11.7 H (<=6.0) % AST (17-59) U/L ALT (4-49) U/L Triglycerides 268.00 H (0.00-149.00) mg/dL Cholesterol 208.00 H (0.00-200.00) mg/dL VLDL Cholesterol, Calc 53.60 H (5.00-40.00) mg/dL HDL Cholesterol 25.60 L (40.00-60.00) mg/dL 03/16/24 03/16/24 03/17/24 Range/Units 15:46 20:18 05:33 WBC (3.8-10.6) k/uL Glucose (74-99) mg/dL POC Glucose (mg/dL) 283 H 271 H (70-110) mg/dL Hemoglobin A1c 11.5 H (<=6.0) % AST (17-59) U/L ALT (4-49) U/L Triglycerides (0.00-149.00) mg/dL Cholesterol (0.00-200.00) mg/dL VLDL Cholesterol, Calc (5.00-40.00) mg/dL HDL Cholesterol (40.00-60.00) mg/dL 03/17/24 03/17/24 Range/Units 05:33 05:33 WBC 12.5 H (3.8-10.6) k/uL Glucose 198 H (74-99) mg/dL POC Glucose (mg/dL) (70-110) mg/dL Hemoglobin A1c (<=6.0) % AST 79 H (17-59) U/L ALT 63 H (4-49) U/L Triglycerides (0.00-149.00) mg/dL Cholesterol (0.00-200.00) mg/dL VLDL Cholesterol, Calc (5.00-40.00) mg/dL HDL Cholesterol (40.00-60.00) mg/dL
[2024-03-17] MEDS ORDERED: INSULIN DETEMIR (LEVEMIR) 100 UNIT/ML SYR SQ SCH (21:00)
== END 2024-03-17 14:40 | disposition home or self-care (01) | DRG 174 ==
LOC: EC 23:23 → 2SICU 23:41 → 3SCARD 03-17 07:58
PROVIDERS: ADMIT Internal Medicine; ATTEND Internal Medicine
PROC: 027034Z Dilation of Coronary Artery, One Artery with Drug-eluting Intraluminal Device, Percutaneous Approach (ICD-10-PCS; principal; 2024-03-16)
PROC: B240ZZ3 Ultrasonography of Single Coronary Artery, Intravascular (ICD-10-PCS; 2024-03-16)
PROC: 4A023N7 Measurement of Cardiac Sampling and Pressure, Left Heart, Percutaneous Approach (ICD-10-PCS; 2024-03-16)
PROC: B2111ZZ Fluoroscopy of Multiple Coronary Arteries using Low Osmolar Contrast (ICD-10-PCS; 2024-03-16)
DX: I21.19 ST elevation (STEMI) myocardial infarction involving other coronary artery of inferior wall (principal); I27.20 Pulmonary hypertension, unspecified; I50.20 Unspecified systolic (congestive) heart failure; I25.82 Chronic total occlusion of coronary artery; E11.65 Type 2 diabetes mellitus with hyperglycemia; E78.5 Hyperlipidemia, unspecified; D72.828 Other elevated white blood cell count; I25.10 Atherosclerotic heart disease of native coronary artery without angina pectoris; F17.210 Nicotine dependence, cigarettes, uncomplicated; I25.5 Ischemic cardiomyopathy; Z79.4 Long term (current) use of insulin; Z79.84 Long term (current) use of oral hypoglycemic drugs
CPT/HCPCS: 36415; 71045; 80048; 80053; 80061; 83036; 83735; 85025; 85027; 92978; 93005; 93306; 93458; 99291